=== PATIENT | male | born 1945 | race Caucasian/White ===

== ENCOUNTER 2016-11-25 09:08 | Day surgery (SDC) | payer MEDICARE, BC ==
[~2016-11-25] VITALS: Ht 180.3 cm; Wt 95.4 kg
== END 2016-11-25 12:11 | disposition home or self-care (01) ==
LOC: RAD.S 09:08 → EDSTATUS 10:30 → RAD.S 10:30
PROC: 07BD3ZX Excision of Aortic Lymphatic, Percutaneous Approach, Diagnostic (ICD-10-PCS; principal; 2016-11-25)
DX: C77.2 Secondary and unspecified malignant neoplasm of intra-abdominal lymph nodes (principal); C25.1 Malignant neoplasm of body of pancreas; I10 Essential (primary) hypertension; Z79.82 Long term (current) use of aspirin; Z79.891 Long term (current) use of opiate analgesic; Z79.899 Other long term (current) drug therapy